=== PATIENT | male | born 1940 | race Asian ===

== ENCOUNTER 2019-12-16 16:29 | Emergency (ER) | payer MEDICARE ==
[~2019-12-16] VITALS: Ht 167.6 cm; Wt 63.6 kg
[2019-12-16] MEDS ORDERED: PANT-31 PO (17:38)
[2019-12-16] MEDS ORDERED: APIX2.5T PO (17:38)
[2019-12-16] MEDS ORDERED: DILT30 PO (17:38)
[2019-12-16] MEDS ORDERED: FURO20 PO (17:38)
[2019-12-16 18:02] VITALS: BP 161/83
== END 2019-12-16 19:00 | disposition home or self-care (01) ==
LOC: EMS 16:29
DX: F03.90 Unspecified dementia, unspecified severity, without behavioral disturbance, psychotic disturbance, mood disturbance, and anxiety (principal); J44.9 Chronic obstructive pulmonary disease, unspecified; F17.210 Nicotine dependence, cigarettes, uncomplicated
CPT/HCPCS: 93005